=== PATIENT | male | born 1930 | race Caucasian/White ===

== ENCOUNTER → 2017-04-21 | Outpatient (CLI) | payer OTHER ==
[~2017-04-21] MED LIST: ASPEC81 PO; ATOR-54 PO; CLOP1TAB54 PO; CPR500 PO; LISINOPRIL PO; LPR25 PO; MULTTAB58 PO; POLY335040 PO; RANI150T3 PO
[2017-04-21 14:09] LABS: BASO % 1.2 %; COMPLETE YES; EOS % 7.5 %; HEMATOCRIT 36.5 % (42-52); IG% 0.2 %; LYMPH % 9.6 %; LYMPH ABS # 0.81 K/uL (1.2-3.4); MEAN CELL VOLUME 94.8 fL (80-100); MEAN CORPUSCULAR HEMOGLOBIN 30.9 pg (25-34); MEAN CORPUSCULAR HGB CONC 32.6 g/dl (32-36); MEAN PLATELET VOLUME 11.1 fL (7.4-10.4); MONO % 11.3 %; NEUT % 70.2 %; PLATELET COUNT 185 K/uL (130-400); RED BLOOD COUNT 3.85 M/uL (4.7-6.1); WHITE BLOOD COUNT 8.44 K/uL (4.8-10.8)
[2017-04-21 14:26] LABS: ALT/SGPT 16 U/L (12-78); AST/SGOT 15 U/L (15-37); BLOOD UREA NITROGEN 32 mg/dl (7-18); BUN/CREATININE RATIO 19.8 (10-20); CALCIUM 8.8 mg/dl (8.5-10.1); CARBON DIOXIDE 26 mmol/L (21-32); CHLORIDE 110 mmol/L (98-107); CHOLESTEROL 80 mg/dl (0-200); GLUCOSE 148 mg/dl (70-99); HDL CHOLESTEROL 40 mg/dl; LDL CHOLESTEROL CALCULATED 30 mg/dl; POTASSIUM 4.3 mmol/L (3.5-5.1); SODIUM 141 mmol/L (136-145); TRIGLYCERIDES 51 mg/dl (0-150); VERY LOW DENSITY LIPOPROT CALC 10 mg/dl
[2017-04-21 14:33] LABS: ALB/GLOB RATIO 0.9 (0.9-2); ALKALINE PHOSPHATASE 93 U/L (45-117)
== END | disposition home or self-care (01) ==
LOC: C.LABSPEC 13:10
PROVIDERS: ATTEND Family Medicine
DX: R06.02 Shortness of breath (principal); I25.10 Atherosclerotic heart disease of native coronary artery without angina pectoris; I10 Essential (primary) hypertension; R60.0 Localized edema